=== PATIENT | male | born 1970 | race Caucasian/White ===

== ENCOUNTER 2024-05-24 10:53 | Emergency (ER) | payer OTHER, BC, SELFPAY ==
[2024-05-24 10:56] VITALS: BP 133/59; PULSE 94; RESP 16; TEMP 37.1; O2SAT 97; BMI 27.9
--- NOTE | 2024-05-24 11:42 | ED_ITS ---
HPI - General Adult General Chief complaint: Skin/Abscess/Foreign Body Stated complaint: Cyst Time Seen by Provider: 05/24/24 11:07 History of Present Illness HPI narrative: Is a 53-year-old gentleman who has a history of pilonidal cyst comes in with the inflamed area on the top of the gluteal cleft just to the right of the midline that is been present for last 10 days in his increasingly sore and causing discomfort. He has a 2nd area that is within the gluteal cleft on the same side which often times drains blood and pus. He has had previous excisions but nothing in the operating room. Patient feels he is up-to-date on his tetanus shot. He has no signs of sepsis syndrome fevers chills of palpitations or chest pain. Patient is otherwise in his usual good state of health. Related Data Home Medications ?Medication ?Instructions ?Recorded ?Confirmed insulin glargine 100 unit/mL (3 30 unit subcut QPM 09/20/23 05/24/24 mL) subcutaneous pen (Lantus Solostar U-100 Insulin) metformin 500 mg tablet 1,000 mg PO BID 09/20/23 05/24/24 Previous Rx's ?Medication ?Instructions ?Recorded cyclobenzaprine 10 mg tablet 10 mg PO BID PRN muscle spasm #10 11/18/23 tabs Allergies Allergy/AdvReac Type Severity Reaction Status Date / Time penicillins Allergy Mild Unknown Uncoded 05/24/24 09:42 Review of Systems Status of ROS: Reports: 10 or more systems reviewed and unremarkable except as noted in History and below Exam Narrative: Exam Narrative: EXAM GENERAL: Patient appears comfortable and well. EYES: No scleral icterus. ENT: Tympanic membranes and oropharynx normal. THYROID: no thyroid nodules or thyromegaly. LYMPH: No supraclavicular or cervical lymphadenopathy. SKIN: Obvious area of induration and swelling to the right of the midline just above the gluteal cleft with induration measuring approximately 6 cm. EXT: No dependent lower extremity pedal edema. HEART: Regular rate and rhythm with no murmurs, rubs, or gallops. LUNGS: Clear to auscultation bilaterally with no crackles or wheezes. ABD: Soft, non tender, non distended. PSYCH: Good eye contact, speech is not pressured. Const: Vital Signs, click to edit/add: Vital Signs - 24 hr 08/18/24 10:56 Temperature 98.7 F Pulse Rate [Right Pulse Oximeter] 94 Respiratory Rate 16 Blood Pressure [Ri ght Upper Arm] 133/59 L Pulse Oximetry 97 Oxygen Delivery Me thod Room Air Course Course ED Course: After reviewing the case with General surgery in documenting his tetanus status, I did inform the patient of the plan to perform incision and drainage. Informed consent was obtained. I then sterilely prepared the area with topical alcohol after which I created anesthesia with approximately 4 mL of 1% lidocaine. I then made a 2 cm incision expressing a significant amount of pus and debris. The area was explored with a dull curved Pat. I then major with no remaining abnormal tissue was present. I then packed the wound as best I could and dressed the wound as well as explained wound care. Vital Signs Vital signs: Initial Vital Signs Temperature 98.7 F 05/24/24 10:56 Temperature Source Temporal Artery Scan 05/24/24 10:56 Pulse Rate 94 05/24/24 10:56 Pulse Rhythm Regular 05/24/24 10:56 Pulse Strength 3+ Normal 05/24/24 10:56 Respiratory Rate 16 05/24/24 10:56 Blood Pressure 133/59 L 05/24/24 10:56 Blood Pressure Mean 83 05/24/24 10:56 Blood Pressure Position Sitting 05/24/24 10:56 Pulse Oximetry 97 05/24/24 10:56 Oxygen Delivery Method Room Air 05/24/24 10:56 Vital Signs Temperature 98.7 F 05/24/24 10:56 Pulse Rate 94 05/24/24 10:56 Respiratory Rate 16 05/24/24 10:56 Blood Pressure 133/59 L 05/24/24 10:56 Pulse Oximetry 97 05/24/24 10:56 Oxygen Delivery Method Room Air 05/24/24 10:56 Temperature 98.7 F 05/24/24 10:56 Pulse Rate 94 05/24/24 10:56 Respiratory Rate 16 05/24/24 10:56 Blood Pressure 133/59 L 05/24/24 10:56 Pulse Oximetry 97 05/24/24 10:56 Oxygen Delivery Method Room Air 05/24/24 10:56 Medical Decision Making MDM Narrative Medical decision making narrative: Patient presents with pilonidal cyst which is drained in the emergency room. I explained postoperative care as well as follow-up with his primary physician in 2-3 days. This time will treated with Keflex [place] and dressing changes. He will return if problems develop such as fevers chills worsening drainage or pain. I would recommend eventual follow-up with General surgery after the acute infection has been treated. Discharge Plan Discharge Clinical Impression: Cyst, pilonidal, with abscess Patient Disposition: Home, Self-Care Condition: Stable Instructions: Pilonidal Cyst Excision (DC) Additional Instructions: Keflex as directed [place] as directed Dressing changes as directed Follow-up with your doctor in 2-3 days. Activity Level: No Restrictions Discharge Diet: Regular Prescriptions: No Action insulin glargine [Lantus Solostar U-100 Insulin] 100 unit/mL (3 mL) insulin pen 30 unit subcut QPM metformin 500 mg tablet 1,000 mg PO BID cyclobenzaprine 10 mg tablet 10 mg PO BID PRN (Reason: muscle spasm) Qty: 10 0RF Follow Up/Referrals: Provider,Not a Local [Primary Care Provider] - Stand Alone Forms: [employer]NET BUSINESS [employer]ER Info Instructions
[2024-05-24 12:00] VITALS: BP 133/59; PULSE 94; RESP 16; TEMP 37.1
--- OUTSIDE RECORDS SUMMARY | 2024-05-24 12:04 | XMS_ITS | Clinical Summary ---
Author Organization [facility] Address [place], [place] [address] Care Team Providers Care Dioramist Name Role Phone [place], [place] Primary Care Provider [phone] Allergies Active Allergy Reactions Criticality Noted Date Comments Levofloxacin Nausea Only,Dizziness 10/28/2011 Penicillins *Unknown - Pt Doesn't Remember 03/2010 Medications Medication Sig Dispensed Refills Start Date End Date Status insulin needles, disposable, (COMFORT EZ PEN NEEDLES) 31 X / For administering insulin at home. 100 Each 0 03/17/2015 Active insulin glargine (LANTUS SOLOSTAR U-100 INSULIN) 100 unit/mL (3 mL) penIndications:Ty pe 2 diabetes mellitus with hyperglycemia, with long-term current use of insulin (HC) Inject 35 Units subcutaneous 2 times daily at 8 AM and 8 PM. 1 box 01/28/2018 Active baclofen (LIORESAL) 10 mg tabletIndications :Chronic midline low back pain with left-sided sciatica Take 1 tablet by mouth 3 times daily. 30 tablet 5 06/27/2020 Active blood sugar diagnostic (BLOOD GLUCOSE TEST) stripIndications: Type 2 diabetes mellitus with hyperglycemia, with long-term current use of insulin (HC) Dispense test strips covered by the patient insurance. Test 3 times per day. 300 Each 1 10/17/2020 Active cyclobenzaprine (FLEXERIL) 10 mg tabletIndications :Muscle contusion Take 1 Tablet (10 mg) by mouth 2 times daily. 20 Tablet 02/20/2021 Active diazePAM (VALIUM) 5 mg tabletIndications :Insomnia, idiopathic Take 1 Tablet (5 mg) by mouth at bedtime if needed for Anxiety. 20 tablet. 02/21/2021 Active metFORMIN (GLUCOPHAGE) 1,000 mg tabletIndications :Type 2 diabetes mellitus without complication, with long-term current use of insulin (HC) Take 1 Tablet (1,000 mg) by mouth 2 times daily with meals. 180 tablet. 02/21/2021 Active oxyCODONE-acetami nophen (Percocet) 5-325 mg per tabletIndications :Chronic midline low back pain with left-sided sciatica Take 1 Tablet by mouth every 4 hours if needed for Pain. Max acetaminophen dose: 4000mg in 24 hrs. 30 tablet. 02/24/2021 Active sildenafil citrate (VIAGRA) 100 mg tabletIndications :Erectile dysfunction of organic origin Take 1 Tablet (100 mg) by mouth once daily if needed for Erectile Dysfunction. Take 30min to 4 hours before sexual activity. Max 100mg/24hr. 10 Tablet 11 06/25/2022 Active zolpidem (AMBIEN) 10 mg tabletIndications :Insomnia, idiopathic TAKE 1/2 TO 1 (ONE-HALF TO ONE) TABLET BY MOUTH ONCE DAILY AT BEDTIME NEEDED 30 Tablet 09/25/2022 Active Active Problems Problem Noted Date Diagnosed Date Left knee pain 08/08/2015 Left shoulder pain 02/17/2015 Insomnia 02/23/2014 Environmental allergies 04/02/2013 vitamin D deficiency 07/10/2012 Routine health maintenance 11/28/2011 Diabetes mellitus type II 11/28/2011 Overview: a system change updated this record. This will not affect patient care or billing. This comment can be deleted. Depression with anxiety 06/21/2011 Gout, unspecified 04/13/2011 LBP (low back pain) 11/26/2010 hyperlipidemia 11/26/2010 Resolved Problems Problem Noted Date Diagnosed Date Resolved Date Acute sinusitis, unspecified 07/07/2012 04/02/2013 Acute bronchitis 07/07/2012 04/02/2013 Mild intermittent asthma 11/28/201111/2020 Impaired glucose tolerance 11/26/2010 0 04/02/2013 Family history of diabetes mellitus 11/26/2010 04/02/2013 Immunizations Name Administration Dates Next Due COVID-19 vaccine (Moderna 10 0mcg/0.5mL) PF, MDV 12/29/2020,12/01/2020 Hepatitis B (Adult) 06/27/2020 Influenza Virus, Unspecified 08/07/2013,07/07/20 12 Influenza, IIV4 06/27/2020 Pneumococcal Poly,23-Valent (Pneumovax) 12/06/19 17 Td (Age >=7 Years) 10/07/1999 Td, Preservative Free (age >= 7 Years) 8 Tdap 10/07/2012 Tuberculin (PPD) 12/26/2007,04/15/2007, 7 Family History Medical History Relation Name Comments Diabetes Father Heart Disease Father Hyperlipidemia Father Hypertension Father Diabetes Mother Hyperlipidemia Mother Psychiatric illness Mother Relation Name Status Comments Father Mother Social History Tobacco Use Types Packs/Day Years Used Date Smoking Tobacco: Never Smokeless Tobacco: Never Tobacco Cessation:Counseling Given: Yes Alcohol Use Standard Drinks/Week Comments Yes 2 (1 standard drink = 0.6 oz pur e alcohol) Per week PHQ-2 Answer Date Recorded PHQ-2 TOTAL SCORE 0 09/16/2020 Social Connections Answer Date Recorded Frequency of Communication with Friends and Fami ly 0 10/10/2023 Financial Resource Strain Answer Date R ecorded Difficulty of Paying Living Expenses 3 10/10/2023 Difficulty of Paying Living Expenses Not on file 10/10/2023 Food Insecurity Answer Date Recorded Worried About Running Out of Food in the Last Ye ar 1 10/10/2023 Transportation Needs Answer Date Record ed Lack of Transportation (Medical) 1 10/10/2023 Housing Stability Answer Date Recorded Unable to Pay for Housing in the Last Year 1 10/10/2023 Sex and Gender Information Value Date Recorded Sex Assigned at Not on file Gender Identity Not on file Sexual Orientation Not on file Obstetrics History Last Filed Vital Signs Vital Sign Reading Time Taken Comments Blood Pressure 144/79 10/10/2023 2:48 PM AUDIT PRACTICE INTERN Pulse 76 10/10/2023 2:48 PM AUDIT PRACTICE INTERN Temperature 36.6 ??C (97.9 ??F) 10/10/2023 2:46 PM CS T Respiratory Rate 15 10/10/2023 2:46 PM AUDIT PRACTICE INTERN Oxygen Saturation 97% 10/10/2023 2:48 PM AUDIT PRACTICE INTERN Inhaled Oxygen Concentration - - Weight 93 kg (205 lb) 10/10/2023 2:46 PM AUDIT PRACTICE INTERN Height 180.3 cm (5' 11) 10/10/2023 2:46 PM AUDIT PRACTICE INTERN Body Mass Index 28.59 10/10/2023 2:46 PM AUDIT PRACTICE INTERN Plan of Treatment Health Maintenance Due Date Last Done Comments HIV for age 15-65 1987 Hepatitis C screening for age 18-79 1990 Colonoscopy through age 75 2017 Depression screening for age 12+ 09/19/2021 09/19/2020, 09/16/2020, 09/18/2019, Additional history exists Zoster (shingles) series for age 50+ (1 of 2) 2022 COVID-19 vaccine series (3 - 2022- season) 2023 12/29/2020, 12/01/2020 Influenza for age 50-64 06/07/2024 06/27/20 20, 08/07/2013, 07/07/2012 BMI (ht and wt on same day) for age 18+ 10/10/2024 10/10/2023, 03/01/2022, 06/23/2021, Additional history exists Lipids for age 45-75 01/12/2026 01/12/2021, 03/11/2020, 08/11/2019, Additional history exists Tetanus booster 06/10/2028 06/10/2018, 10/2012, 10/07/1999 Tdap Completed 10/07/2012 Pneumococcal series for age 6-64 Aged Out 12/05/2016 No longer eligible based on patient's age to complete this topic Procedures Procedure Name Priority Date/Time Associated Diagnosis Comments LIPID PANEL Routine 01/12/2021 2:15 PM CDT Mixed hyperlipidemia from Last 3 Months or Most Recently Relevant to Health Maintenance Results * (ABNORMAL) LIPID PANEL (01/12/2021 2:15 PM CDT) CHOLESTEROL,TOTAL 220(H) 100 - 199 mg/dL 01/12/2021 8:23 PM CDT [facility] TRIGLYCERIDES 287(H) <150 mg/dL 01/12/2021 8:23 PM CDT [facility] HDL CHOLESTEROL 37(L) >40 mg/dL 8:23 PM CDT [facility] NON-HDL CHOLESTEROL 183(H) <145 mg/dl 01/12/2021 8:23 PM CDT [facility] CHOL/HDL RATIO 5.95(H) <4.50 01/12/2021 8:23 PM CDT [facility] LDL CHOLESTEROL 126 <=130 mg/dL 01/12/2021 8:23 PM CDT [facility] PROVIDER ORDERED STATUS RANDOM 01/12/2021 8:23 PM CDT [facility] Blood BLOOD SPECIMEN / Unknown Venipuncture / Unknown 01/12/2021 2:15 PM CDT 01/12/2021 2:17 PM CDT Cornel Marquez MD CHEMISTRY [facility] [address] [place] [address], from Last 3 Months or Most Recently Relevant to Health Maintenance Care Teams Dioramist Relationship Specialty Start Date End Date [place], [place] [address] [employer] [place] [id number] PCP - General 03/01/22 [facility] Nurse Practitioner [address] [place], [place] [id number] Ophthalmology 11/20/21
--- OUTSIDE RECORDS SUMMARY | 2024-05-24 12:04 | XMS_ITS | Clinical Summary ---
Author Organization [facility] Address [address] [place] [address] Care Team Providers Care Twister Tender Name Role Phone Cornel Marquez MD Primary Care Provider [phone] Source Comments You are receiving this document as you are listed as the primary care provider,follow-up provider, or the patient has been referred to you for consultation.This is in compliance with the Medicare and[facility] EHR Incentive Program,which states Providers who transition their patient to another setting of careor provider of care or refers their patient to another provider of care shouldprovide summary care record for each transition of care or referral. [employer] Medications Medication Sig Dispensed Refills Start Date End Date Status gabapentin (NEURONTIN) 300 MG capsule 0 01/01/2018 Active NOVOLOG FLEXPEN 100 UNIT/ML pen injection INJECT 10 UNITS SUBCUTANEOUS 3 TIMES DAILY BEFORE MEALS. 5 12/10/2017 Active metFORMIN (GLUCOPHAGE) 1000 MG tablet Take 1,000 mg by mouth two times a day with meals. Active traMADol (ULTRAM) 50 MG tablet Take 50 mg by mouth every 6 hours as needed for Pain. Active Resolved Problems Problem Noted Date Diagnosed Date Resolved Date Lumbar pain 01/15/2018 07/30/2018 Lumbar radiculopathy 01/15/2018 018 Social History Tobacco Use Types Packs/Day Years Used Date Smoking Tobacco: Never Assessed Sex and Gender Information Value Date Recorded Sex Assigned at Not on file Gender Identity Not on file Sexual Orientation Not on file Plan of Treatment Health Maintenance Due Date Last Done Comments Colon Cancer Screening Plan Due 1972 Hep C Screening (Preventive Services) 1972 PSA Screening Discussion 1972 HIV Screening (Preventive Services) 1988 Adult Preventive Visit 1990 DTaP/Tdap/Td (1 - Tdap) 1991 HepB (1) 1991 Cholesterol 2007 Zoster/Shingles (1 of 2) 2022 COVID-19 Vaccine (1 - 2022-2 4 season) 2023 Influenza (#1) 2024 HepA Aged Out No longer eligi ble based on patient's age to complete this topic Hib Aged Out No longer eligi ble based on patient's age to complete this topic IPV (Polio) Aged Out No longer eligi ble based on patient's age to complete this topic MCV4 Aged Out No longer eligi ble based on patient's age to complete this topic Pneumococcal Aged Out No longer eligi ble based on patient's age to complete this topic Care Teams Twister Tender Relationship Specialty [place] [address] [place] [address] PCP - General Family Practice 01/15/18
--- OUTSIDE RECORDS SUMMARY | 2024-05-24 12:04 | XMS_ITS | Continuity of Care Document ---
Author Name [facility] Organization [facility] Care Team Providers Care Stock Hanger Name Role Phone [facility] Unavailable Unavailable Problems Combined list of problems from Department of [facility] and [facility] facilities. It does not include entries that were removed or entered in error. 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 [facility] allergies Inactive Condition allergies DoD subjective visual disturbances Inactive Condition [facility] Chronic low back pain Active Condition Dec 07, 2021 Entered By: BLAINE CHENEY Comment: S/P left L4-L5 HLMD in 2017 [facility] Depression Active Condition [facility] Gout Active Condition [facility] Hyperlipidemia Active Condition [facility] Insomnia Active Condition [facility] Shoulder joint pain Active Condition [facility] Type 2 diabetes mellitus without complication (SNOMED CT [id number]) Active Condition February 04, 2013 Entered By: ELBERT SUN Comment: Managed by Dr.Rod Jimmy MD at [facility] Diagnosis: ICD-10-CM M54.50 Low back pain, unspecified Active Diagnosis [facility] Diagnosis: ICD-10-CM E11.9 Type 2 diabetes mellitus without complications Active Diagnosis [facility] Medications Combined list of outpatient medications from Department of [facility] and [facility] facilities.Medications provided include 1) outpatient medications from the last 15 months, and 2) patient-reported medications. Medication Details Route Status Patient Instructions Prescription Expires Prescription Number Last Dispense Date Ordering Provider Order Date Order Qty Source ATORVASTATI N CA 80MG TAB ATORVAST ATIN CA 80MG TAB Non-VA TAKE ONE-HALF TABLET BY MOUTH AT BEDTIME Dec 07, 2021 Non-VA Document ed by: Simona CHENEY Document ed at: [place] [facility] ORAL ACTIVE COOKIE CHENEY [facility] INSULIN,GLA RGINE,HUMAN 100 UNIT/ML INJ,SOLOSTA R,3ML INSULIN, GLARGINE ,HUMAN 100 UNIT/ML INJ,SOLO STAR,3ML Disconti nued INJECT 35 UNITS UNDER THE SKIN TWICE A DAY - IF BLOOD SUGAR IS LESS THAN 70 ON ANY OCCASION , PLEASE DO NOT TAKE ANY INSULIN AND CALL THE DIABETES CLINIC AT THE [place] DO NOT MIX WITH ANY OTHER INSULINS FOR DIABETES Jan 01, 2023 10 Jan 02, 2024 [id number] Dec 10, 2023 HCECO MOULTON H [place] [facility] SUBCUT ANEOUS DISCONT INUED 01/02/2024 [id number] ANA MOULTON 2022 10 [facility] INSULIN,GLA RGINE-YFGN 100UNIT/ML INJ PEN,3ML INSULIN, GLARGINE -YFGN 100UNIT/ ML INJ PEN,3ML INJECT 35 UNITS UNDER THE SKIN TWICE A DAY - IF BLOOD SUGAR IS LESS THAN 70 ON ANY OCCASION , PLEASE DO NOT TAKE ANY INSULIN AND CALL THE DIABETES [place]INIC AT THE [place] DO NOT MIX WITH ANY OTHER INSULINS FOR DIABETES Dec 11, 2023 10 Jan 02, 2024 [id number] Dec 11, 2023 HARI MOULTON [facility] [facility] SUBCUT ANEOUS 01/02/2024 [id number] ANA MOULTON 2023 10 [facility] LIDOCAINE 5% PATCH LIDOCAIN E 5% PATCH Active APPLY 1 PATCH TOPICALL Y EVERY DAY FOR UP TO 12 HOURS FOR PAIN FOR UP TO 12 HOURS FOR PAIN Nov 21, 2023 30 Nov 21, 2024 [id number] 2023 Khadijah SHOOK [facility] TOPICA L ACTIVE 11/21/2024 [id number] DO NGA SHOOK 2023 30 [facility] METFORMIN HCL 500MG 24HR TAB,SA METFORMI N HCL 500MG 24HR TAB,SA TAKE TWO TABLETS BY MOUTH TWICE A DAY FOR DIABETES Jan 01, 2023 360 Jan 02, 2024 [id number] Dec 10, 2023 HARI MOULTON [facility] [facility] ORAL 01/02/2024 [id number] ANA MOULTON 2022 360 [facility] MULTIVITAMI NS CAP/TAB MULTIVIT AMINS CAP/TAB Non-VA TAKE ONE TABLET BY MOUTH EVERY DAY February 04, 2013 Non-VA Document ed by: VASQUEZ DE LEON DD Document ed at: [facility] ORAL ACTIVE NAIDL,TOD D 2012 [facility] OXYCODONE HCL 5MG/ACETAMI NOPHEN 325MG TAB OXYCODON E HCL 5MG/ACET AMINOPHE N 325MG TAB Non-VA TAKE ONE TABLET BY MOUTH QID PRN February 04, 2013 Non-VA Document ed by: VASQUEZ DE LEON DD Document ed at: [facility] ORAL ACTIVE NAIDL,TOD D 2012 [facility] PREDNISONE 20MG TAB PREDNISO NE 20MG TAB TAKE TWO TABLETS BY MOUTH EVERY DAY FOR PAIN FOR PAIN Nov 21, 2023 14 Dec 21, 2023 [id number] 2023 Khadijah SHOOK [facility] ORAL 12/21/2023 [id number] FORGITDO NGA 2023 14 [facility] ZOLPIDEM TARTRATE 10MG TAB ZOLPIDEM TARTRATE 10MG TAB Non-VA TAKE ONE TABLET BY MOUTH AT BEDTIME NEEDED Dec 07, 2021 Non-VA Document ed by: Simona CHENEY Document ed at: [facility] ORAL ACTIVE COOKIE CHENEY 2021 [facility] Allergies, Adverse Reactions, Alerts Combined list of allergies from Department of Defense and Veterans Affairs facilities. It does not include entries that were removed or entered in error. Substance Category Reaction Severity Reaction type Status Date Reported Comments Source PENICILLIN Propensity to adverse reactions to drug (finding) Eruption active 3 [facility] PENICILLIN-G RELATED PENICILLINS Drug allergy (disorder) Eruption of skin active 3 [facility] Immunizations Combined list of available immunizations from the Department of Defense and Veterans Affairs facilities. Immunization Series Date Given Administered By Site Reaction Lot Number CVX Code Drug [employer] Status Comments Source INFLUENZA, INJECTABLE, QUADRIVALENT, PRESERVATIVE FREE 2021 150 complet ed [facility] COVID-19 (MODERNA), MRNA, LNP-S, PF, 100 MCG/0.5 ML DOSE 2 2020 207 complet ed [facility] COVID-19 (MODERNA), MRNA, LNP-S, PF, 100 MCG/0.5 ML DOSE 1 2020 207 complet ed [facility] INFLUENZA, UNSPECIFIED FORMULATION 2019 88 complet ed [facility] HEP B, ADULT 2019 43 complet ed [facility] INFLUENZA, INJECTABLE, QUADRIVALENT, PRESERVATIVE FREE 2019 150 complet ed [facility] TD (ADULT), 5 LF TETANUS TOXOID, PRESERVATIVE FREE, ADSORBED 2017 113 complet ed [facility] PNEUMOCOCCAL POLYSACCHARID E [id number] 2016 33 complet ed [employer], [id number], 03/12/18 [facility] INFLUENZA, SEASONAL, INJECTABLE 2016 141 complet ed [facility] INFLUENZA, SEASONAL, INJECTABLE 2013 141 complet ed private [facility] INFLUENZA, UNSPECIFIED FORMULATION 2012 88 complet ed [facility] TDAP 2012 115 complet ed [facility] INFLUENZA, UNSPECIFIED FORMULATION 2011 88 complet ed [facility] Results Combined list of recent chemistry, hematology and other laboratory results from Department of Defense and Veterans Affairs, ranging from 15 months to all on record, depending upon the facility. Order Name Results Value Reference Range Date Interpretation Specimen Comments Source ALT/SGPT ALANINE AMINOTRANSF ERASE [ENZYMATIC ACTIVITY/VO LUME] IN SERUM OR PLASMA 17 U/L <55 - 55 01/01 Specimen Type: PLASMA Comment: Elevated triglycerid e result from a non-fasting specimen should be interpreted with caution. A fasting panel is recommended for accurate triglycerid es when trigs are >200 from a non-fasting specimen. Ordering Provider: LUISA MOULTON Report Released Date/Time: Jan 01, 2023 05:28 PM Reporting Lab: [facility] [address] Performing Lab: [facility] [address] [facility] AST/SGOT ASPARTATE AMINOTRANSF ERASE [ENZYMATIC ACTIVITY/VO LUME] IN SERUM OR PLASMA 21 U/L <34 - 34 01/01 Specimen Type: PLASMA Comment: Elevated triglycerid e result from a non-fasting specimen should be interpreted with caution. A fasting panel is recommended for accurate triglycerid es when trigs are >200 from a non-fasting specimen. Ordering Provider: LUISA MOULTON Report Released Date/Time: Jan 01, 2023 05:28 PM Reporting Lab: [facility] [address] Performing Lab: [facility] [address] [place] [facility] BASIC METABOLIC PANEL+MG CREATININE [MASS/VOLUM E] IN SERUM OR PLASMA 0.8 mg/dL 0.7 - 1.2 01/01 Specimen Type: PLASMA Comment: Elevated triglycerid e result from a non-fasting specimen should be interpreted with caution. A fasting panel is recommended for accurate triglycerid es when trigs are >200 from a non-fasting specimen. Ordering Provider: LUISA MOULTON Report Released Date/Time: Jan 01, 2023 05:28 PM Reporting Lab: [facility] [address] Performing Lab: [facility] [address] [place] [facility] BASIC METABOLIC PANEL+MG UREA NITROGEN [MASS/VOLUM E] IN SERUM OR PLASMA 9 mg/dL 8 - 26 01/01 Specimen Type: PLASMA Comment: Elevated triglycerid e result from a non-fasting specimen should be interpreted with caution. A fasting panel is recommended for accurate triglycerid es when trigs are >200 from a non-fasting specimen. Ordering Provider: LUISA MOULTON Report Released Date/Time: Jan 01, 2023 05:28 PM Reporting Lab: [facility] [address] Performing Lab: [facility] [address] [place] [facility] BASIC METABOLIC PANEL+MG GLUCOSE [MASS/VOLUM E] IN SERUM OR PLASMA 492 mg/dL 70 - 100 01/01 H Specimen Type: PLASMA Comment: Elevated triglycerid e result from a non-fasting specimen should be interpreted with caution. A fasting panel is recommended for accurate triglycerid es when trigs are >200 from a non-fasting specimen. Ordering Provider: LUISA MOULTON Report Released Date/Time: Jan 01, 2023 05:28 PM Reporting Lab: [facility] [address] Performing Lab: [facility] [address] [place] [facility] BASIC METABOLIC PANEL+MG SODIUM [MOLES/VOLU ME] IN SERUM OR PLASMA 132 mmol/L 136 - 145 01/01 L Specimen Type: PLASMA Comment: Elevated triglycerid e result from a non-fasting specimen should be interpreted with caution. A fasting panel is recommended for accurate triglycerid es when trigs are >200 from a non-fasting specimen. Ordering Provider: LUISA MOULTON Report Released Date/Time: Jan 01, 2023 05:28 PM Reporting Lab: [facility] [address] Performing Lab: [facility] [address] [place] [facility] BASIC METABOLIC PANEL+MG POTASSIUM [MOLES/VOLU ME] IN SERUM OR PLASMA 4.2 mmol/L 3.5 - 5.1 01/01 Specimen Type: PLASMA Comment: Elevated triglycerid e result from a non-fasting specimen should be interpreted with caution. A fasting panel is recommended for accurate triglycerid es when trigs are >200 from a non-fasting specimen. Ordering Provider: LUISA MOULTON Report Released Date/Time: Jan 01, 2023 05:28 PM Reporting Lab: [facility] [address] Performing Lab: [facility] [address] [place] [facility] BASIC METABOLIC PANEL+MG CHLORIDE [MOLES/VOLU ME] IN SERUM OR PLASMA 97 mmol/L 98 - 107 01/01 L Specimen Type: PLASMA Comment: Elevated triglycerid e result from a non-fasting specimen should be interpreted with caution. A fasting panel is recommended for accurate triglycerid es when trigs are >200 from a non-fasting specimen. Ordering Provider: LUISA MOULTON Report Released Date/Time: Jan 01, 2023 05:28 PM Reporting Lab: [facility] [address] Performing Lab: [facility] [address] [place] [facility] BASIC METABOLIC PANEL+MG CARBON DIOXIDE, TOTAL [MOLES/VOLU ME] IN SERUM OR PLASMA 23 mmol/L 22 - 29 01/01 Specimen Type: PLASMA Comment: Elevated triglycerid e result from a non-fasting specimen should be interpreted with caution. A fasting panel is recommended for accurate triglycerid es when trigs are >200 from a non-fasting specimen. Ordering Provider: LUISA MOULTON Report Released Date/Time: Jan 01, 2023 05:28 PM Reporting Lab: [facility] [address] Performing Lab: [facility] [address] [place] [facility] BASIC METABOLIC PANEL+MG CALCIUM [MASS/VOLUM E] IN SERUM OR PLASMA 9.4 mg/dL 8.4 - 10.2 01/01 Specimen Type: PLASMA Comment: Elevated triglycerid e result from a non-fasting specimen should be interpreted with caution. A fasting panel is recommended for accurate triglycerid es when trigs are >200 from a non-fasting specimen. Ordering Provider: LUISA MOULTON Report Released Date/Time: Jan 01, 2023 05:28 PM Reporting Lab: [facility] [address] Performing Lab: [facility] [address] [place] [facility] BASIC METABOLIC PANEL+MG MAGNESIUM [MASS/VOLUM E] IN SERUM OR PLASMA 1.8 mg/dL 1.6 - 2.6 01/01 Specimen Type: PLASMA Comment: Elevated triglycerid e result from a non-fasting specimen should be interpreted with caution. A fasting panel is recommended for accurate triglycerid es when trigs are >200 from a non-fasting specimen. Ordering Provider: LUISA MOULTON Report Released Date/Time: Jan 01, 2023 05:28 PM Reporting Lab: [facility] [address] Performing Lab: [facility] [address] [place] [facility] BASIC METABOLIC PANEL+MG ANION GAP IN SERUM OR PLASMA 12 mmol/L 5 - 15 01/01 Specimen Type: PLASMA Comment: Elevated triglycerid e result from a non-fasting specimen should be interpreted with caution. A fasting panel is recommended for accurate triglycerid es when trigs are >200 from a non-fasting specimen. Ordering Provider: LUISA MOULTON Report Released Date/Time: Jan 01, 2023 05:28 PM Reporting Lab: [facility] [address] Performing Lab: [facility] [address] [place] [facility] BASIC METABOLIC PANEL+MG GLOMERULAR FILTRATION RATE/1.73 SQ M.PREDICTED [VOLUME RATE/AREA] IN SERUM, PLASMA OR BLOOD BY CREATININE- BASED FORMULA (CKD-EPI) >90 60 01/01 Specimen Type: PLASMA Comment: Elevated triglycerid e result from a non-fasting specimen should be interpreted with caution. A fasting panel is recommended for accurate triglycerid es when trigs are >200 from a non-fasting specimen. Ordering Provider: LUISA MOULTON Report Released Date/Time: Jan 01, 2023 05:28 PM Reporting Lab: [facility] [address] Performing Lab: [facility] [address] [place] [facility] CBC & DIFF LEUKOCYTES [#/VOLUME] IN BLOOD BY AUTOMATED COUNT 5.44 10*3/u L 4.0 - 11.0 01/01 Specimen Type: BLOOD Comment: Automated Differentia l Performed Ordering Provider: LUISA MOULTON Report Released Date/Time: Jan 01, 2023 05:28 PM Reporting Lab: [facility] [address] Performing Lab: [facility] [address] [place] [facility] CBC & DIFF ERYTHROCYTE S [#/VOLUME] IN BLOOD BY AUTOMATED COUNT 4.81 10*6/u L 4.6 - 6.2 01/01 Specimen Type: BLOOD Comment: Automated Differentia l Performed Ordering Provider: LUISA MOULTON Report Released Date/Time: Jan 01, 2023 05:28 PM Reporting Lab: [facility] [address] Performing Lab: [facility] [address] [place] [facility] CBC & DIFF HEMOGLOBIN [MASS/VOLUM E] IN BLOOD 14.7 g/dL 13.5 - 17.9 01/01 Specimen Type: BLOOD Comment: Automated Differentia l Performed Ordering Provider: LUISA MOULTON Report Released Date/Time: Jan 01, 2023 05:28 PM Reporting Lab: [facility] [address] Performing Lab: [facility] [address] [place] [facility] CBC & DIFF HEMATOCRIT [VOLUME FRACTION] OF BLOOD BY AUTOMATED COUNT 41.7 41 - 54 01/01 Specimen Type: BLOOD Comment: Automated Differentia l Performed Ordering Provider: LUISA MOULTON Report Released Date/Time: Jan 01, 2023 05:28 PM Reporting Lab: [facility] [address] Performing Lab: [facility] [address] [place] [facility] CBC & DIFF MCV [ENTITIC VOLUME] BY AUTOMATED COUNT 86.7 fL 80 - 100 01/01 Specimen Type: BLOOD Comment: Automated Differentia l Performed Ordering Provider: LUISA MOULTON Report Released Date/Time: Jan 01, 2023 05:28 PM Reporting Lab: [facility] [address] Performing Lab: [facility] [address] [place] [facility] CBC & DIFF MCH [ENTITIC MASS] BY AUTOMATED COUNT 30.6 pg 27 - 33 01/01 Specimen Type: BLOOD Comment: Automated Differentia l Performed Ordering Provider: LUISA MOULTON Report Released Date/Time: Jan 01, 2023 05:28 PM Reporting Lab: [facility] [address] Performing Lab: [facility] [address] [place] [facility] CBC & DIFF MCHC [MASS/VOLUM E] BY AUTOMATED COUNT 35.3 g/dL 32.0 - 37.5 01/01 Specimen Type: BLOOD Comment: Automated Differentia l Performed Ordering Provider: LUISA MOULTON Report Released Date/Time: Jan 01, 2023 05:28 PM Reporting Lab: [facility] [address] Performing Lab: [facility] [address] [place] [facility] CBC & DIFF PLATELETS [#/VOLUME] IN BLOOD BY AUTOMATED COUNT 228 10*3/u L 150 - 400 01/01 Specimen Type: BLOOD Comment: Automated Differentia l Performed Ordering Provider: LUISA MOULTON Report Released Date/Time: Jan 01, 2023 05:28 PM Reporting Lab: [facility] [address] Performing Lab: [facility] [address] [place] [facility] CBC & DIFF PLATELET MEAN VOLUME [ENTITIC VOLUME] IN BLOOD BY AUTOMATED COUNT 9.5 fL 7.4 - 10.4 01/01 Specimen Type: BLOOD Comment: Automated Differentia l Performed Ordering Provider: LUISA MOULTON Report Released Date/Time: Jan 01, 2023 05:28 PM Reporting Lab: [facility] [address] Performing Lab: [facility] [address] [place] [facility] CBC & DIFF NEUTROPHILS /100 LEUKOCYTES IN BLOOD BY MANUAL COUNT 58.7 01/01 Specimen Type: BLOOD Comment: Automated Differentia l Performed Ordering Provider: LUISA MOULTON Report Released Date/Time: Jan 01, 2023 05:28 PM Reporting Lab: [facility] [address] Performing Lab: [facility] [address] [place] [facility] CBC & DIFF LYMPHOCYTES /100 LEUKOCYTES IN BLOOD BY MANUAL COUNT 28.3 01/01 Specimen Type: BLOOD Comment: Automated Differentia l Performed Ordering Provider: LUISA MOULTON Report Released Date/Time: Jan 01, 2023 05:28 PM Reporting Lab: [facility] [address] Performing Lab: [facility] [address] [place] [facility] CBC & DIFF MONOCYTES/1 00 LEUKOCYTES IN BLOOD BY AUTOMATED COUNT 7.2 01/01 Specimen Type: BLOOD Comment: Automated Differentia l Performed Ordering Provider: LUISA MOULTON Report Released Date/Time: Jan 01, 2023 05:28 PM Reporting Lab: [facility] [address] Performing Lab: [facility] [address] [place] [facility] CBC & DIFF EOSINOPHILS /100 LEUKOCYTES IN BLOOD BY AUTOMATED COUNT 5.0 01/01 Specimen Type: BLOOD Comment: Automated Differentia l Performed Ordering Provider: LUISA MOULTON Report Released Date/Time: Jan 01, 2023 05:28 PM Reporting Lab: [facility] [address] Performing Lab: [facility] [address] [place] [facility] CBC & DIFF BASOPHILS/1 00 LEUKOCYTES IN BLOOD BY MANUAL COUNT 0.6 01/01 Specimen Type: BLOOD Comment: Automated Differentia l Performed Ordering Provider: LUISA MOULTON Report Released Date/Time: Jan 01, 2023 05:28 PM Reporting Lab: [facility] [address] Performing Lab: [facility] [address] [place] [facility] CBC & DIFF ERYTHROCYTE DISTRIBUTIO N WIDTH [RATIO] BY AUTOMATED COUNT 11.9 11.5 - 14.5 01/01 Specimen Type: BLOOD Comment: Automated Differentia l Performed Ordering Provider: LUISA MOULTON Report Released Date/Time: Jan 01, 2023 05:28 PM Reporting Lab: [facility] [address] Performing Lab: [facility] [address] [place] [facility] CBC & DIFF LYMPHOCYTES [#/VOLUME] IN BLOOD BY AUTOMATED COUNT 1.54 10*3/u L 1.0 - 4.0 01/01 Specimen Type: BLOOD Comment: Automated Differentia l Performed Ordering Provider: LUISA MOULTON Report Released Date/Time: Jan 01, 2023 05:28 PM Reporting Lab: [facility] [address] Performing Lab: [facility] [address] [place] [facility] CBC & DIFF MONOCYTES [#/VOLUME] IN BLOOD BY AUTOMATED COUNT 0.39 10*3/u L 0.1 - 1.0 01/01 Specimen Type: BLOOD Comment: Automated Differentia l Performed Ordering Provider: LUISA MOULTON Report Released Date/Time: Jan 01, 2023 05:28 PM Reporting Lab: [facility] [address] Performing Lab: [facility] [address] [place] [facility] CBC & DIFF NEUTROPHILS [#/VOLUME] IN BLOOD BY AUTOMATED COUNT 3.20 10*3/u L 2.0 - 7.7 01/01 Specimen Type: BLOOD Comment: Automated Differentia l Performed Ordering Provider: LUISA MOULTON Report Released Date/Time: Jan 01, 2023 05:28 PM Reporting Lab: [facility] [address] Performing Lab: [facility] [address] [place] [facility] CBC & DIFF EOSINOPHILS [#/VOLUME] IN BLOOD BY AUTOMATED COUNT 0.27 10*3/u L 0 - 0.5 01/01 Specimen Type: BLOOD Comment: Automated Differentia l Performed Ordering Provider: LUISA MOULTON Report Released Date/Time: Jan 01, 2023 05:28 PM Reporting Lab: [facility] [address] Performing Lab: [facility] [address] [place] [facility] CBC & DIFF BASOPHILS [#/VOLUME] IN BLOOD BY AUTOMATED COUNT 0.03 10*3/u L 0 - 0.2 01/01 Specimen Type: BLOOD Comment: Automated Differentia l Performed Ordering Provider: LUISA MOULTON Report Released Date/Time: Jan 01, 2023 05:28 PM Reporting Lab: [facility] [address] Performing Lab: [facility] [address] [place] [facility] CBC & DIFF IG(META,MYE LO,PRO) 0.2 01/01 Specimen Type: BLOOD Comment: Automated Differentia l Performed Ordering Provider: LUISA MOULTON Report Released Date/Time: Jan 01, 2023 05:28 PM Reporting Lab: [facility] [address] Performing Lab: [facility] [address] [place] [facility] CBC & DIFF IMMATURE GRANULOCYTE S [PRESENCE] IN BLOOD BY AUTOMATED COUNT 0.01 10*3/u L 0 - 0.1 01/01 Specimen Type: BLOOD Comment: Automated Differentia l Performed Ordering Provider: LUISA MOULTON Report Released Date/Time: Jan 01, 2023 05:28 PM Reporting Lab: [facility] [address] Performing Lab: [facility] [address] [place] [facility] HEMOGLOBI N A1C HEMOGLOBIN A1C/HEMOGLO BIN.TOTAL IN BLOOD >14.0 4.0 - 6.0 01/01 H Specimen Type: BLOOD Comment: Values obtained from A1C measurement s can vary. For typical A1C assays, a reported value of 7.0 could actually be between 6.7 and 7.3 if measured by a reference method. A reported value of 9.0 could actually be between 8.7 and 9.3. Ref: http://[email or web address] [email or web address]/[place] Pdata.asp Ordering Provider: LUISA MOULTON Report Released Date/Time: Jan 01, 2023 05:28 PM Reporting Lab: [facility] [address] Performing Lab: [facility] [address] [place] [facility] LIPID PANEL,NON -FASTING CHOLESTEROL [MASS/VOLUM E] IN SERUM OR PLASMA 257 mg/dL <199 - 199 01/01 H Specimen Type: PLASMA Comment: Elevated triglycerid e result from a non-fasting specimen should be interpreted with caution. A fasting panel is recommended for accurate triglycerid es when trigs are >200 from a non-fasting specimen. Ordering Provider: LUISA MOULTON Report Released Date/Time: Jan 01, 2023 05:28 PM Reporting Lab: [facility] [address] Performing Lab: [facility] [address] [place] [facility] LIPID PANEL,NON -FASTING CHOLESTEROL IN HDL [MASS/VOLUM E] IN SERUM OR PLASMA 35 mg/dL 40 01/01 L Specimen Type: PLASMA Comment: Elevated triglycerid e result from a non-fasting specimen should be interpreted with caution. A fasting panel is recommended for accurate triglycerid es when trigs are >200 from a non-fasting specimen. Ordering Provider: LUISA MOULTON Report Released Date/Time: Jan 01, 2023 05:28 PM Reporting Lab: [facility] [address] Performing Lab: [facility] [address] [place] [facility] LIPID PANEL,NON -FASTING CHOLESTEROL IN LDL [MASS/VOLUM E] IN SERUM OR PLASMA BY CALCULATION 143 mg/dL <99 - 99 01/01 H Specimen Type: PLASMA Comment: Elevated triglycerid e result from a non-fasting specimen should be interpreted with caution. A fasting panel is recommended for accurate triglycerid es when trigs are >200 from a non-fasting specimen. Ordering Provider: LUISA MOULTON Report Released Date/Time: Jan 01, 2023 05:28 PM Reporting Lab: [facility] [id number] Performing Lab: [facility] [id number] [place] [facility] LIPID PANEL,NON -FASTING CHOLESTEROL IN VLDL [MASS/VOLUM E] IN SERUM OR PLASMA BY CALCULATION 79 mg/dL <29 - 29 01/01 H Specimen Type: PLASMA Comment: Elevated triglycerid e result from a non-fasting specimen should be interpreted with caution. A fasting panel is recommended for accurate triglycerid es when trigs are >200 from a non-fasting specimen. Ordering Provider: LUISA MOULTON Report Released Date/Time: Jan 01, 2023 05:28 PM Reporting Lab: [facility] [address] Performing Lab: [facility] [address] [place] [facility] LIPID PANEL,NON -FASTING CHOLESTEROL NON HDL [MASS/VOLUM E] IN SERUM OR PLASMA 222 mg/dL <129 - 129 01/01 H Specimen Type: PLASMA Comment: Elevated triglycerid e result from a non-fasting specimen should be interpreted with caution. A fasting panel is recommended for accurate triglycerid es when trigs are >200 from a non-fasting specimen. Ordering Provider: ULISA MOULTON Report Released Date/Time: Jan 01, 2023 05:28 PM Reporting Lab: [facility] [address] Performing Lab: [facility] [address] [place] [facility] [facility] LIPID PANEL,NON -FASTING TRIGLYCERID E [MASS/VOLUM E] IN SERUM OR PLASMA 396 mg/dL <149 - 149 01/01 H Specimen Type: PLASMA Comment: Elevated triglycerid e result from a non-fasting specimen should be interpreted with caution. A fasting panel is recommended for accurate triglycerid es when trigs are >200 from a non-fasting specimen. Ordering Provider: LUISA MOULTON Report Released Date/Time: Jan 01, 2023 05:28 PM Reporting Lab: [facility] [address] Performing Lab: [facility] [address] [place] [facility] Vital Signs Combined list of inpatient and outpatient Vital Signs from Department of Defense and Veterans Affairs, ranging from 12 months to all on record, depending upon the facility. Vital Sign Value Date Comments Source Encounters Combined list of: 1) Encounters from Department of Veterans Affairs facilities going back up to thelast 18 months. 2) Encounters from the Department of [facility] facilities going back up to 280 months. Location Location Details Encounter Type Encounter Number Reason For Visit Attending Provider ADM Date DC Date Status Disposition Source [facility] Facility OUTPATIENT [id number] 02/21 Released w[facility] OUTPATIENT [id number] Theater Provider 03/21 Released w/o Limitations [facility] OUTPATIENT [id number] 04/13 Released w/o Limitations [facility] [place] [facility] Outpatient Encounter [id number] 01/01 [facility] [place] [facility] OFFICE O/P EST LOW 20-29 MIN [id number] Diagnos is: ICD-10- CM E11.9 Type 2 diabete s mellitu s without complic ations< br/> LUISA MOULTON 01/01 [facility] [place] [facility] Outpatient Encounter [id number] NEHALASHELL YEMI 11/18 [facility] [place] [facility] Outpatient Encounter [id number] MIGELITINNA 11/21 [facility] [place] [facility] OFFICE O/P EST MOD 30 MIN [id number] Diagnos is: ICD-10- CM M54.50 Low back pain, unspeci fied
MIGELITINNA 11/21 [facility] [place] [facility] Outpatient Encounter [id number] 12/18 [facility] Social History Combined list of available smoking, tobacco, and other social history from Department of Defense and [facility] facilities. 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 [facility]
== END 2024-05-24 12:05 | disposition home or self-care (01) ==
LOC: ED 12:02
PROVIDERS: Emergency Provider Internal Medicine; PCP Family Medicine
DX: L05.01 Pilonidal cyst with abscess (principal)
CPT/HCPCS: 10080; 87070; 99283